=== PATIENT | female | born 1945 | race Caucasian/White ===

== ENCOUNTER 2022-03-14 12:29 | Outpatient (REF) | payer MEDICARE, SELFPAY ==
[2022-03-14 13:31] LABS: TSH With Reflex to FT4* 0.587 uIU/mL (0.270-4.200)
[2022-03-14 13:49] LABS: Vitamin B12* 662 pg/mL (243-894)
[2022-03-15 08:43] LABS: Folate, Serum >22.3 ng/mL (>=5.9)
== END 2022-03-14 12:30 | disposition home or self-care (01) ==
LOC: NPINS 12:29
PROVIDERS: PCP Family Medicine; Visit Provider Psychiatry & Neurology Neurology
DX: R41.0 Disorientation, unspecified (principal)
CPT/HCPCS: 82607; 82746; 84443

== ENCOUNTER 2022-05-20 09:58 | Outpatient (CLI) | payer MEDICARE, SELFPAY ==
[2022-05-20 12:15] LABS: Cholesterol* 143 mg/dL (90-199); HDL Cholesterol* 61 mg/dL (>=50); LDL Cholesterol Calculated 60 mg/dL (<100); Triglycerides* 108 mg/dL (40-149)
== END 2022-05-20 09:59 | disposition home or self-care (01) ==
LOC: NFLDREF 09:58
PROVIDERS: PCP Family Medicine; Visit Provider Internal Medicine
DX: I25.10 Atherosclerotic heart disease of native coronary artery without angina pectoris (principal); E78.5 Hyperlipidemia, unspecified
CPT/HCPCS: 80061

== ENCOUNTER 2022-05-25 09:45 | Outpatient (RCR) | payer MEDICARE, SELFPAY | END 2022-11-17 23:59 | disposition home or self-care (01) | PROVIDERS: PCP Family Medicine; Visit Provider Dentist General Practice | DX: R68.84 Jaw pain (principal); M79.18 Myalgia, other site; H92.09 Otalgia, unspecified ear; M26.69 Other specified disorders of temporomandibular joint; M54.2 Cervicalgia; G44.209 Tension-type headache, unspecified, not intractable; Z51.89 Encounter for other specified aftercare | CPT/HCPCS: 97110; 97140; 97162 ==

== ENCOUNTER 2022-10-28 14:54 | Outpatient (CLI) | payer OTHER, SELFPAY | END 2022-10-28 14:55 | disposition home or self-care (01) | PROVIDERS: PCP Family Medicine; Visit Provider Family Medicine | DX: E87.1 Hypo-osmolality and hyponatremia (principal); I10 Essential (primary) hypertension; R53.83 Other fatigue; E78.5 Hyperlipidemia, unspecified; E11.40 Type 2 diabetes mellitus with diabetic neuropathy, unspecified; E11.9 Type 2 diabetes mellitus without complications | CPT/HCPCS: 80048; 84443; 85025 ==

== ENCOUNTER 2023-02-03 17:33 | Outpatient (CLI) | payer OTHER, SELFPAY | END 2023-02-03 17:34 | disposition home or self-care (01) | LOC: AMB 02-05 11:08 | PROVIDERS: PCP Family Medicine; Visit Provider Family Medicine | DX: S01.512A Laceration without foreign body of oral cavity, initial encounter (principal); S02.5XXA Fracture of tooth (traumatic), initial encounter for closed fracture | CPT/HCPCS: A0425; A0427 ==

== ENCOUNTER 2023-02-03 17:54 | Emergency (ER) | payer OTHER, SELFPAY ==
[2023-02-03 18:09] VITALS: BP 205/80; PULSE 89; RESP 18; TEMP 38.2; O2SAT 98; BMI 25.1
--- NOTE | 2023-02-03 18:34 | ED.GENADULT ---
HPI - General Adult General Chief complaint: Dental/Oral/Mouth Injury/Pain Stated complaint: Tongue puncture wound Time Seen by Provider: 02/03/23 17:59 History of Present Illness HPI narrative: This 78-year-old female comes in because her partial dental plate became dislodged and a sharp edge of it punctured through the left side of her tongue. She had a hard time talking as the plate was causing pain and not releasing from its position. While awaiting in the waiting room to be seen she was able to remove the dental plate. She reports a puncture on the left side of her tongue. There is no sign of laceration. Her tetanus status is up-to-date by her report. Related Data Home Medications Medication Instructions Recorded Confirmed calcium carbonate 500 mg calcium 500 mg PO QDAY 11/23/21 10/28/22 (1,250 mg) tablet diphenhydramine HCl 50 mg capsule 50 mg PO .HS 11/23/21 10/28/22 echinacea 125 mg capsule 250 mg PO QDAY 11/23/21 10/28/22 multivitamin 1 tab PO QDAY 11/23/21 10/28/22 ascorbate calcium (vitamin C) 500 500 mg PO QDAY 03/03/22 10/28/22 mg tablet aspirin 81 mg tablet,delayed 81 mg PO QDAY 03/03/22 10/28/22 release vitamin E 200 unit capsule 200 unit PO QDAY 03/03/22 10/28/22 Previous Rx's Medication Instructions Recorded nitroglycerin 0.4 mg sublingual 0.4 mg sublingual Q5M PRN chest 05/04/22 tablet (Nitrostat) pain #20 tabs amlodipine 5 mg tablet 5 mg PO QDAY #90 tabs 12/23/22 atorvastatin 40 mg tablet 40 mg PO QDAY #90 tabs 12/23/22 clopidogrel 75 mg tablet 75 mg PO QDAY #90 tabs 12/23/22 donepezil 10 mg tablet 10 mg PO QDAY #90 tabs 12/23/22 escitalopram oxalate 20 mg tablet 20 mg PO QDAY #90 tabs 12/23/22 gabapentin 300 mg capsule 300 mg PO QHS #90 caps 12/23/22 lisinopril 40 mg tablet 40 mg PO QDAY #90 tabs 12/23/22 metoprolol succinate 50 mg 50 mg PO QDAY #90 tabs 12/23/22 tablet,extended release 24 hr Allergies Allergy/AdvReac Type Severity Reaction Status Date / Time fentanyl Allergy Unknown Verified 10/28/22 14:17 hydromorphone Allergy Unknown Verified 10/28/22 14:17 morphine Allergy Unknown Verified 10/28/22 14:17 Review of Systems Status of ROS: Reports: 10 or more systems reviewed and unremarkable except as noted in History and below Narrative: Constitutional: No fevers, no weight gain or loss. Eyes: No discharge. No vision changes. HENT: No congestion, no sore throat, no ear pain. Tongue injury as described above. Cardiovascular: No chest pain, no palpitations. Respiratory: No shortness of breath, no wheezes, no cough. Gastrointestinal: No abdominal pain, no vomiting, no diarrhea. Genitourinary: No dysuria, no hematuria. Musculoskeletal: Normal range of motion. Skin: No rashes, no pruritis. Neurological: No dizziness, weakness, sensory change, speech change. Endo/Heme/Allergies: No bruising or bleeding. No polydipsia. Pysch: no suicidality, no anxiety, no insomnia. All other systems reviewed and are negative. [facility] Medical History (Updated 02/03/23 @ 18:39 by Chris Cristobal MD) Chronic diarrhea ?K52.9 - Noninfective gastroenteritis and colitis, unspecified (ICD-10) Diabetic neuropathy ?E11.40 - Type 2 diabetes mellitus with diabetic neuropathy, unspecified (ICD-10) Situational depression ?F43.21 - Adjustment disorder with depressed mood (ICD-10) ASCVD (arteriosclerotic cardiovascular disease) ?I25.10 - Atherosclerotic heart disease of [place] coronary artery without angina pectoris (ICD-10) Type 2 diabetes mellitus ?E11.9 - Type 2 diabetes mellitus without complications (ICD-10) Odontogenic infection of jaw (08/16/20) ?M27.2 - Inflammatory conditions of jaws (ICD-10) Non-ST elevation myocardial infarction (NSTEMI) (01/11/21) ?I21.4 - Non-ST elevation (NSTEMI) myocardial infarction (ICD-10) Mild cognitive impairment with memory loss ?G31.84 - Mild cognitive impairment, so stated (ICD-10) Hyponatremia (01/11/21) ?E87.1 - Hypo-osmolality and hyponatremia (ICD-10) Hypertension ?I10 - Essential (primary) hypertension (ICD-10) Hyperlipidemia ?E78.5 - Hyperlipidemia, unspecified (ICD-10) History of malignant neoplasm of cervix ?Z85.41 - Personal history of malignant neoplasm of cervix uteri (ICD-10) Surgical History (Updated 10/27/22 @ 12:25 by Brunilda Pulliam) History of lumbar surgery ?Z98.890 - Other specified postprocedural states (ICD-10) History of hysterectomy ?Z90.710 - Acquired absence of both cervix and uterus (ICD-10) History of coronary artery stent placement (01/12/21) ?Z95.5 - Presence of coronary angioplasty implant and graft (ICD-10) Family History (Updated 11/22/21 @ 16:08 by Willian Mejia) Father Heart disease Social History (Updated 08/28/22 @ 21:43 by Stevan Lawson MD) Narrative: , 3 kids, retired RN, nonsmoker, social EtOH, 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 Smoking Status: Former smoker Little interest or pleasure in doing things: several days Feeling down, depressed, or hopeless: several days Exam Narrative: Exam Narrative: Constitutional: Well-developed, well-nourished, no acute distress. HEENT: Normocephalic, atraumatic. Oropharynx appears normal. There is a small puncture wound on the left side of the tongue with no active bleeding. Neck: Normal range of motion. Nontender. Supple. Heart: Intact distal pulses. Lungs: No chest discomfort. No wheezes, rhonchi, or rales. Abdomen: Nontender. Back: Normal range of motion. Extremities: Normal range of motion. No injury. Skin: Intact. No rash. Warm. No erythema or pallor. Neurologic: No altered sensation. No weakness. Alert and oriented. Psychiatric: No suicidality. No anxiety or depression. No insomnia. Nursing notes and vitals signs are reviewed. Const: Vital Signs, click to edit/add: Vital Signs - 24 hr 02/03/23 18:09 Temperature 100.8 F H Pulse Rate [Pulse Oximeter] 89 Respiratory Rate 18 Blood Pressure [Ri ght Upper Arm] 205/80 H Pulse Oximetry 98 Oxygen Delivery Me thod Room Air Course Vital Signs Vital signs: Initial Vital Signs Temperature 100.8 F H 02/03/23 18:09 Temperature Source Temporal Artery Scan 02/03/23 18:09 Pulse Rate 89 02/03/23 18:09 Respiratory Rate 18 02/03/23 18:09 Blood Pressure 205/80 H 02/03/23 18:09 Blood Pressure Mean 121 H 02/03/23 18:09 Pulse Oximetry 98 02/03/23 18:09 Oxygen Delivery Method Room Air 02/03/23 18:09 Vital Signs Temperature 100.8 F H 02/03/23 18:09 Pulse Rate 89 02/03/23 18:09 Respiratory Rate 18 02/03/23 18:09 Blood Pressure 205/80 H 02/03/23 18:09 Pulse Oximetry 98 02/03/23 18:09 Oxygen Delivery Method Room Air 02/03/23 18:09 Temperature 100.8 F H 02/03/23 18:09 Pulse Rate 89 02/03/23 18:09 Respiratory Rate 18 02/03/23 18:09 Blood Pressure 205/80 H 02/03/23 18:09 Pulse Oximetry 98 02/03/23 18:09 Oxygen Delivery Method Room Air 02/03/23 18:09 Medical Decision Making MDM Narrative Medical decision making narrative: This patient received a puncture in the left side of her tongue from her partial dental plate that became dislodged. The plate was still imbedded in her tongue at the time of arrival but by the time of my visit she was able to remove the plate. Her exam is reassuring. I explained that there is no indication for repair of this wound. The patient states that the dental plate is yet functional. She is okay to be discharged home. Discharge Plan Discharge Clinical Impression: Injury of tongue Patient Disposition: Home, Self-Care Condition: Improved Additional Instructions: Continue current plans. Use [id number] medicines as needed and directed. Follow up with MD return if worsening. Prescriptions: No Action aspirin 81 mg tablet,delayed release (DR/EC) 81 mg PO QDAY diphenhydramine HCl 50 mg capsule 50 mg PO .HS calcium carbonate 500 mg calcium (1,250 mg) tablet 500 mg PO QDAY echinacea 125 mg capsule 250 mg PO QDAY Rx Instructions: administer with meals multivitamin Tablet 1 tab PO QDAY ascorbate calcium (vitamin C) 500 mg tablet 500 mg PO QDAY vitamin E 200 unit capsule 200 unit PO QDAY nitroglycerin [Nitrostat] 0.4 mg tablet, sublingual 0.4 mg sublingual Q5M PRN (Reason: chest pain) Qty: 20 1RF Rx Instructions: do not exceed 3 doses per episode amlodipine 5 mg tablet 5 mg PO QDAY Qty: 90 0RF atorvastatin 40 mg tablet 40 mg PO QDAY Qty: 90 0RF clopidogrel 75 mg tablet 75 mg PO QDAY Qty: 90 0RF donepezil 10 mg tablet 10 mg PO QDAY Qty: 90 0RF escitalopram oxalate 20 mg tablet 20 mg PO QDAY Qty: 90 0RF gabapentin 300 mg capsule 300 mg PO QHS Qty: 90 0RF lisinopril 40 mg tablet 40 mg PO QDAY Qty: 90 0RF metoprolol succinate 50 mg tablet extended release 24 hr 50 mg PO QDAY Qty: 90 0RF Follow Up/Referrals: Stevan Lawson MD [Primary Care Provider] - Stand Alone [facility] Inst[facility]
== END 2023-02-03 19:22 | disposition home or self-care (01) ==
LOC: ED 18:45
PROVIDERS: Emergency Provider Emergency Medicine Emergency Medical Services; PCP Family Medicine
DX: S01.532A Puncture wound without foreign body of oral cavity, initial encounter (principal); X58.XXXA Exposure to other specified factors, initial encounter
CPT/HCPCS: 99282; 99283; 99284

== ENCOUNTER 2023-12-18 15:35 | Outpatient (CLI) | payer OTHER, SELFPAY | END 2023-12-18 15:36 | disposition home or self-care (01) | PROVIDERS: PCP Family Medicine; Visit Provider Family Medicine | DX: E78.2 Mixed hyperlipidemia (principal); I10 Essential (primary) hypertension; E11.9 Type 2 diabetes mellitus without complications; E87.1 Hypo-osmolality and hyponatremia | CPT/HCPCS: 80048; 80061; 84460 ==

== ENCOUNTER 2024-02-03 17:03 | Emergency (ER) | payer OTHER, SELFPAY ==
[2024-02-03 17:11] VITALS: BP 204/77; PULSE 85; RESP 18; TEMP 36.6; O2SAT 96; BMI 25.8
[2024-02-03 18:02] LABS: PCR FLU A Negative PCR FLU A (Negative); PCR FLU B Negative PCR FLU B (Negative); PCR RSV Negative PCR RSV (Negative); SARS PCR* Negative SARS-CoV-2 (Negative)
--- NOTE | 2024-02-03 19:27 | ED_ITS ---
HPI - Nausea/Vomiting/Diarrhea General Chief complaint: Diarrhea Stated complaint: Diarrhea Time Seen by Provider: 02/03/24 19:14 History of Present Illness HPI Narrative: This 79-year-old female comes in reporting 3 episodes of diarrhea that occurred today. She has not had much to eat. She has been taking liquids now and arrives with normal vital signs. She does report some nausea on occasion but none currently. She has not had any vomiting or fever. There is no report of blood in the toilet. Related Data Home Medications ?Medication ?Instructions ?Recorded ?Confirmed calcium carbonate 500 mg PO QDAY 11/23/21 12/18/23 diphenhydramine HCl 50 mg capsule 50 mg PO .HS 11/23/21 12/18/23 echinacea 125 mg capsule 250 mg PO QDAY 11/23/21 12/18/23 multivitamin 1 tab PO QDAY 11/23/21 12/18/23 ascorbate calcium (vitamin C) 500 500 mg PO QDAY 03/03/22 12/18/23 mg tablet aspirin 81 mg tablet,delayed 81 mg PO QDAY 03/03/22 12/18/23 release vitamin E 200 unit capsule 200 unit PO QDAY 03/03/22 12/18/23 cholecalciferol (vitamin D3) PO 04/28/23 12/18/23 Previous Rx's ?Medication ?Instructions ?Recorded Blood Glucose Meter #1 ea 03/20/23 Diabetic Test Strips #100 ea 03/20/23 chlorthalidone 25 mg tablet 25 mg PO QDAY #90 tabs 05/17/23 olanzapine 2.5 mg tablet (Zyprexa) 2.5 mg PO QHS #30 tabs 06/18/23 escitalopram oxalate 20 mg tablet 20 mg PO QDAY #90 tabs 07/28/23 gabapentin 300 mg capsule 300 mg PO QHS #90 caps 07/28/23 lisinopril 40 mg tablet 40 mg PO QDAY #90 tabs 07/28/23 metoprolol succinate 50 mg 50 mg PO QDAY #90 tabs 07/28/23 tablet,extended release 24 hr nitroglycerin 0.4 mg sublingual 0.4 mg sublingual Q5M PRN chest 08/16/23 tablet (Nitrostat) pain #20 tabs clopidogrel 75 mg tablet 75 mg PO DAILY #90 tabs 07/12/24 donepezil 10 mg tablet 10 mg PO DAILY #90 tabs 11/10/23 atorvastatin 40 mg tablet 40 mg PO QDAY #90 tabs 11/13/23 pioglitazone 15 mg tablet 15 mg PO QDAY #90 tabs 12/25/23 Allergies Allergy/AdvReac Type Severity Reaction Status Date / Time fentanyl Allergy Unknown Verified 12/18/23 14:47 hydromorphone Allergy Unknown Verified 12/18/23 14:47 morphine Allergy Unknown Verified 12/18/23 14:47 Review of Systems Status of ROS: Reports: 10 or more systems reviewed and unremarkable except as noted in History and below Narrative: Constitutional: No fevers, no weight gain or loss. Eyes: No discharge. No vision changes. HENT: No congestion, no sore throat, no ear pain. Cardiovascular: No chest pain, no palpitations. Respiratory: No shortness of breath, no wheezes, no cough. Gastrointestinal: No abdominal pain, no vomiting. Diarrhea as reported above. Genitourinary: No dysuria, no hematuria. Musculoskeletal: Normal range of motion. Skin: No rashes, no pruritis. Neurological: No dizziness, weakness, sensory change, speech change. Endo/Heme/Allergies: No bruising or bleeding. No polydipsia. Pysch: no suicidality, no anxiety, no insomnia. All other systems reviewed and are negative. [facility] Medical History (Updated 02/03/24 @ 19:30 by Chris Cristobal MD) Mixed hyperlipidemia ?E78.2 - Mixed hyperlipidemia (ICD-10) Primary hypertension ?I10 - Essential (primary) hypertension (ICD-10) Type 2 diabetes mellitus, without long-term current use of insulin ?E11.9 - Type 2 diabetes mellitus without complications (ICD-10) Chronic diarrhea ?K52.9 - Noninfective gastroenteritis and colitis, unspecified (ICD-10) Diabetic neuropathy ?E11.40 - Type 2 diabetes mellitus with diabetic neuropathy, unspecified (ICD-10) Situational depression ?F43.21 - Adjustment disorder with depressed mood (ICD-10) ASCVD (arteriosclerotic cardiovascular disease) ?I25.10 - Atherosclerotic heart disease of [place] coronary artery without a ngina pectoris (ICD-10) Odontogenic infection of jaw (08/16/20) ?M27.2 - Inflammatory conditions of jaws (ICD-10) Non-ST elevation myocardial infarction (NSTEMI) (01/11/21) ?I21.4 - Non-ST elevation (NSTEMI) myocardial infarction (ICD-10) Mild cognitive impairment with memory loss ?G31.84 - Mild cognitive impairment, so stated (ICD-10) Hyponatremia (01/11/21) ?E87.1 - Hypo-osmolality and hyponatremia (ICD-10) History of malignant neoplasm of cervix ?Z85.41 - Personal history of malignant neoplasm of cervix uteri (ICD-10) Surgical History (Updated 10/27/22 @ 12:25 by Brunilda Pulliam) History of lumbar surgery ?Z98.890 - Other specified postprocedural states (ICD-10) History of hysterectomy ?Z90.710 - Acquired absence of both cervix and uterus (ICD-10) History of coronary artery stent placement (01/12/21) ?Z95.5 - Presence of coronary angioplasty implant and graft (ICD-10) Family History (Updated 11/22/21 @ 16:08 by Willian Mejia) Father Heart disease Social History (Updated 04/28/23 @ 12:07 by Idalia Kaufman ~ RMA, RMA) Narrative: , 3 kids, retired RN, nonsmoker, social EtOH, 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 What is your current living situation?: I presently have a place to live Problems where you live: no known problems In the past 12 months, utilities in danger of being shut off: yes In past 12 months, lack of transportation kept you from medical appts, meetings, work, or getting things needed for daily living: yes In the past 12 mos, have been you worried that your food would run out before you had money to buy more?: never true In the past 12 mos, the food you bought just didn't last and you didn't have money to buy more?: never true Smoking Status: Former smoker How often does anyone, including family, friends and others, physically hurt you : never How often does anyone, including family, friends and others, insult or talk down to you: never How often does anyone, including family, friends and others, threaten you with harm: never How often does anyone, including family, friends and others, scream or curse at you: never Little interest or pleasure in doing things: not at all Feeling down, depressed, or hopeless: not at all Exam Narrative: Exam Narrative: Constitutional: Well-developed, well-nourished, no acute distress. HEENT: Normocephalic, atraumatic. Neck: Normal range of motion. Nontender. Supple. Heart: Regular. No murmurs. Normal rate. Intact distal pulses. Lungs: Clear to auscultation. No chest discomfort. No wheezes, rhonchi, or rales. Abdomen: Normal bowel sounds. Nontender. No rebound tenderness. Genitalia: Deferred. Back: No midline tenderness. Normal range of motion. Extremities: Normal range of motion. No injury. Skin: Intact. No rash. Warm. No erythema or pallor. Neurologic: No altered sensation. No weakness. Alert and oriented. Psychiatric: No suicidality. No anxiety or depression. No insomnia. Nursing notes and vitals signs are reviewed. Const: Vital Signs, click to edit/add: Vital Signs - 24 hr 02/03/24 17:11 Temperature 98 F Pulse Rate [Pulse Oximeter] 85 Respiratory Rate 18 Blood Pressure [Ri ght Upper Arm] 204/77 H Pulse Oximetry 96 Oxygen Delivery Me thod Room Air Course Vital Signs Vital signs: Initial Vital Signs Temperature 98 F 02/03/24 17:11 Temperature Source Temporal Artery Scan 02/03/24 17:11 Pulse Rate 85 02/03/24 17:11 Respiratory Rate 18 02/03/24 17:11 Blood Pressure 204/77 H 02/03/24 17:11 Blood Pressure Mean 119 H 02/03/24 17:11 Pulse Oximetry 96 02/03/24 17:11 Oxygen Delivery Method Room Air 02/03/24 17:11 Vital Signs Temperature 98 F 02/03/24 17:11 Pulse Rate 85 02/03/24 17:11 Respiratory Rate 18 02/03/24 17:11 Blood Pressure 204/77 H 02/03/24 17:11 Pulse Oximetry 96 02/03/24 17:11 Oxygen Delivery Method Room Air 02/03/24 17:11 Temperature 98 F 02/03/24 17:11 Pulse Rate 85 02/03/24 17:11 Respiratory Rate 18 02/03/24 17:11 Blood Pressure 204/77 H 02/03/24 17:11 Pulse Oximetry 96 02/03/24 17:11 Oxygen Delivery Method Room Air 02/03/24 17:11 MDM - Nausea/Vomiting/Diarrhea MDM Narrative Medical decision making narrative: This patient comes in because of 3 episodes of diarrhea. She had otherwise has no other symptoms and has normal vital signs. She did have a nasal swab done which returned negative for COVID, RSV, and influenza. She is satisfied with that result. She did receive 1 tablet of Lomotil. I advised using Imodium as needed and directed for ongoing management. Lab Data Labs: Lab Results 02/03/24 Range/Units 17:18 SARS-CoV-2 (PCR) Negative SARS-CoV-2 (Negative) Influenza Type A (PCR) Negative PCR FLU A (Negative) Influenza Type B (PCR) Negative PCR FLU B (Negative) RSV (PCR) Negative PCR RSV (Negative) Discharge Plan Discharge Clinical Impression: Diarrhea Patient Disposition: Home, Self-Care Condition: Stable Additional Instructions: Use Imodium as needed and directed for ongoing management. Take plenty of fluids as tolerated and increase diet also as tolerated. Follow up with MD return if worsening. Prescriptions: No Action cholecalciferol (vitamin D3) PO pioglitazone 15 mg tablet 15 mg PO QDAY Qty: 90 1RF aspirin 81 mg tablet,delayed release (DR/EC) 81 mg PO QDAY diphenhydramine HCl 50 mg capsule 50 mg PO .HS calcium carbonate 500 mg calcium (1,250 mg) tablet 500 mg PO QDAY echinacea 125 mg capsule 250 mg PO QDAY Rx Instructions: administer with meals multivitamin Tablet 1 tab PO QDAY ascorbate calcium (vitamin C) 500 mg tablet 500 mg PO QDAY vitamin E 200 unit capsule 200 unit PO QDAY (DME) Blood Glucose Meter [facility] [place] See Rx Instructions .ROUTE .MEDSUPPLY Qty: 1 0RF Rx Instructions: As directed ([facility] [place]) Diabetic Test Strips [facility] [place] See Rx Instructions .ROUTE .MEDSUPPLY Qty: 100 3RF Rx Instructions: Check daily chlorthalidone 25 mg tablet 25 mg PO QDAY Qty: 90 1RF olanzapine [Zyprexa] 2.5 mg tablet 2.5 mg PO QHS Qty: 30 5RF escitalopram oxalate 20 mg tablet 20 mg PO QDAY Qty: 90 1RF gabapentin 300 mg capsule 300 mg PO QHS Qty: 90 1RF metoprolol succinate 50 mg tablet extended release 24 hr 50 mg PO QDAY Qty: 90 1RF lisinopril 40 mg tablet 40 mg PO QDAY Qty: 90 1RF nitroglycerin [Nitrostat] 0.4 mg tablet, sublingual 0.4 mg sublingual Q5M PRN (Reason: chest pain) Qty: 20 1RF Rx Instructions: do not exceed 3 doses per episode clopidogrel 75 mg tablet 75 mg PO DAILY Qty: 90 0RF donepezil 10 mg tablet 10 mg PO DAILY Qty: 90 0RF atorvastatin 40 mg tablet 40 mg PO QDAY Qty: 90 0RF Follow Up/Referrals: Stevan Lawson MD [Primary Care Provider] - Stand Alone Forms: [facility] Info Instructions
[2024-02-03] MEDS: DIPHENOXYLATE-ATROP 2.5-0.025 TABLET 1 TAB PO (19:39)
== END 2024-02-03 19:41 | disposition home or self-care (01) ==
LOC: ED 19:30
PROVIDERS: Emergency Provider Emergency Medicine Emergency Medical Services; PCP Family Medicine
DX: R19.7 Diarrhea, unspecified (principal)
CPT/HCPCS: 87631; 99283; 99284; A9270

== ENCOUNTER 2024-02-12 15:45 | Outpatient (RCR) | payer OTHER, SELFPAY | END 2024-02-29 15:43 | disposition home or self-care (01) | PROVIDERS: PCP Family Medicine; Visit Provider Family Medicine | DX: R29.6 Repeated falls (principal); R26.81 Unsteadiness on feet; Z51.89 Encounter for other specified aftercare | CPT/HCPCS: 97110; 97112; 97161 ==

== ENCOUNTER 2024-08-20 15:21 | Outpatient (CLI) | payer OTHER, SELFPAY | END 2024-08-20 15:22 | disposition home or self-care (01) | LOC: FBOREF 15:22 | PROVIDERS: PCP Family Medicine; Visit Provider Family Medicine | DX: E78.2 Mixed hyperlipidemia (principal); I10 Essential (primary) hypertension; E11.9 Type 2 diabetes mellitus without complications | CPT/HCPCS: 80048; 80061; 85025 ==

== ENCOUNTER 2024-12-04 14:10 | Outpatient (CLI) | payer OTHER, SELFPAY | END 2024-12-04 14:11 | disposition home or self-care (01) | LOC: AMB 12-06 12:13 | PROVIDERS: Visit Provider Family Medicine | DX: R55 Syncope and collapse (principal); R19.7 Diarrhea, unspecified; R53.1 Weakness | CPT/HCPCS: A0998 ==

== ENCOUNTER 2024-12-04 14:58 | Emergency (ER) | payer OTHER, SELFPAY ==
[2024-12-04 15:02] VITALS: BP 185/80; PULSE 61; RESP 16; TEMP 36.6; O2SAT 99; BMI 24.3
--- OUTSIDE RECORDS SUMMARY | 2024-12-04 15:04 | XMS_ITS | Clinical Summary ---
Author Organization [employer] [facility] Address [address] [place] [id number] Care Team Providers Care Photocopying Equipment Repairer Name Role Phone Stevan Lawson MD Primary Care Provider + Allergies Active Allergy Reactions Criticality Noted Date Comments Cephalexin Hives 06/17/2014 IV cephalexin Hydromorphone Nausea And Vomiting 06/23/2007 Fentanyl *Unknown 12/13/2013 Metformin Diarrhea 04/19/2016 Morphine Nausea And Vomiting 06/23/2007 Medications OMEGA-3 FATTY ACIDS 1,000 MG CAP Take 1,000 mg by mouth 2 times daily. Active VITAMIN C 500 MG TAB Take 500 mg by mouth 2 times daily. Active MULTIVITAMIN TAB Take 1 Tablet by mouth once daily. Active gabapentin (NEURONTIN) 300 mg capsule Take 300 mg by mouth at bedtime. 12/03/19 21 Active vitamin e 400 unit capsule Take 400 units by mouth once daily. Active coenzyme q10 30 mg capsule Take 30 mg by mouth once daily. Active atorvastatin (LIPITOR) 40 mg tablet Take 40 mg by mouth at bedtime. 09/22/19 21 Active cholecalciferol (VITAMIN D3) 2,000 unit capsule Take 2,000 units by mouth once daily. Active calcium polycarbophiL (FIBERCON) 625 mg tablet Take 625 mg by mouth 2 times daily. Active calcium carbonate (OS-GEO 500) 500 mg calcium (1,250 mg) tablet Take 500 mg by mouth once daily with a meal. Active amLODIPine (Norvasc) 5 mg tablet Take 5 mg by mouth once daily. Active lisinopriL (PRINIVIL; ZESTRIL) 40 mg tablet Take 40 mg by mouth once daily. Active aspirin chewable 81 mg chewable tabletIndications :NSTEMI (non-ST elevated myocardial infarction) (HC) Take 1 Tablet (81 mg) by mouth or nasogastric tube once daily. 90 Tablet 3 1 10:13 AM CDT 01/14/20 21 Active clopidogreL (PLAVIX) 75 mg tabletIndications :NSTEMI (non-ST elevated myocardial infarction) (HC) Take 1 Tablet (75 mg) by mouth once daily. Take uninterrupted for one year 90 Tablet 3 1 10:13 AM CDT 01/14/20 21 Active nitroglycerin (NITROSTAT) 0.4 mg sublingual tabletIndications :NSTEMI (non-ST elevated myocardial infarction) (HC) Place 1 Tablet (0.4 mg) under the tongue every 5 minutes if needed. 25 Tablet 2 1 10:13 AM CDT 01/14/20 21 Active Active Problems Problem Noted Date Diagnosed Date History of hysterectomy 01/11/2021 Cervical cancer 01/11/2021 Overview (01/11/2021): Created by Conversion Replacement Utility updated for latest IMO load History of lumbar surgery 01/11/2021 Hyperlipidemia 01/11/2021 Hypertension 01/11/2021 Overview (01/11/2021): Created by Conversion Replacement Utility updated for latest IMO load Last Assessment & Plan: Well controlled and labs are good. No change today. On an ACEI Hyponatremia 01/11/2021 NSTEMI (non-ST elevated myocardial infarction) 0 01/11/2021 Type 2 diabetes mellitus wit h diabetic neuropathy, without long-term current use of insulin 11/28/2017 Urine retention 10/13/2015 Overview (01/11/2021): Last Assessment & Plan: She has not had as much an issue recently for some reason. Interesting. Family History Medical History Relation Name Comments Diabetes Father Cancer Mother cervical Relation Name Status Comments Father Mother Social History Tobacco Use Types Packs/Day Years Used Date Smoking Tobacco: Former Cigarettes Smokeless Tobacco: Former Quit: 01/23/1971 Tobacco Cessation:Counseling Given: Yes Comments:quit in her 20's Alcohol Use Standard Drinks/Week Comments Yes 0.8 (1 standard drink = 0.6 oz p ure alcohol) PHQ-2 Answer Date Recorded PHQ-2 TOTAL SCORE 2 04/21/2021 Social Connections Answer Date Recorded Frequency of Communication with Friends and Fami ly Not on file 04/21/2021 Financial Resource Strain Answer Date R ecorded Difficulty of Paying Living Expenses Not on file 04/21/2021 Difficulty of Paying Living Expenses Not on file 04/21/2021 Comments No Sex and Gender Information Value Date Recorded Sex Assigned at Not on file Legal Sex Female 6:40 AM [employer] Gender Identity Not on file Sexual Orientation Not on file Obstetrics History Last Filed Vital Signs Vital Sign Reading Time Taken Comments Blood Pressure 146/66 11/09/2022 2:49 PM CDT Pulse 54 11/09/2022 2:49 PM CDT Temperature 36.6 C (97.9 F) 01/13/2021 7:48 AM CDT Respiratory Rate 16 01/13/2021 7:48 AM CDT Oxygen Saturation 100% 11/09/2022 2:49 PM CDT Inhaled Oxygen Concentration - - Weight 75.3 kg (166 lb) 2021 4:00 PM CDT Height 170.2 cm (5' 7) 2021 4:00 PM CDT Body Mass Index 26 2021 4:00 PM CDT Plan of Treatment Health Maintenance Due Date Last Done Comments Tetanus booster 1954 BMI (ht and wt on same day) for age 18+ 1961 Pneumococcal series for age 50+ (1 of 2 - PCV) 1962 Zoster (shingles) series for age 50+ (1 of 2) 1993 DEXA/DXA scan for age 65+ 01/27/2008 Medicare Wellness for age 65+ 01/27/2008 RSV vaccine for adults or (1 - 1-dose 75+ series) 2018 Depression screening for age 12+ 01/29/2022 01/29/2021, 2021 COVID-19 vaccine series (2023- season) 2023 02/07/2022, 11/23/2021, 02/26/2021, Additional history exists Influenza Vaccine (#1) 2024 Hepatitis B series for 19+ Aged Out N o longer eligible based on patient's age to complete this topic Insurance [employer] PPO MR Member Subscriber Plan / Payer (Ef fective 2022-Present) Name:Summer Moran Relation to Subscriber:Self Name:Summer Moran Payer ID:[id number] (NAIC) Type:Not on file Address: [place] [id number] [employer] PPO MR Advance Directives * Full Code (Latest Code Status on File) Date Activated Date Inactivated Comments 01/11/2021 5:40 PM 01/13/2021 2:50 PM No heroic me asures. Limited attempts at resuscitation. (Former NICKER) Question Answer Comments Code Status Discussion: Discussed Care Teams Photocopying Equipment Repairer Relationship Specialty Start Date End Date Stevan Lawson MD [address] [place] [address] PCP - General Family Practice 01/29/21
--- OUTSIDE RECORDS SUMMARY | 2024-12-04 15:04 | XMS_ITS | Patient Health Record ---
Author Organization [employer] Address [address] [place] [address] Support Name Relationship Address Phone Dean Summer Guarantor Unknown [phone] Reason For Referral No Information Medications Medication SIG (Take, Route, Frequency, Duration) Notes Start Date End Date Status metFORMIN HCl ER (OSM) 1000 MG Oral Active Lisinopril 20 MG Oral Act leonel Multivitamin Adult Oral A ctive glipiZIDE 5 MG Oral Activ e Atorvastatin Calcium 80 MG Oral Active Lancets miscellaneous Active Magnesium 200 MG Oral Act leonel Naproxen Sodium 220 MG Oral Active traMADol HCl 50 MG Oral A ctive Aspir-81 81 MG Oral *please review f or potential update for e-prescription and drug interaction check* Active Co Q-10 oral *please review f or potential update for e-prescription and drug interaction check* Active blood sugar diagnostic, disc miscellaneous *please review for potential update for e-prescription and drug interaction check* Active Vitamin C (Calcium Ascorbate) Oral Active Plan Of Treatment No Information Insurance Providers Payer Name Payer Address Payer Phone Subscriber Number Group Number Insured Name Patient Relationship to Insured Coverage Start Date Coverage End Date [employer] Medicare Advantage [address] ANGELITO Roque [id number] Summer Agrawal Self - patient is the insured Medical (General) History Surgical History Surgery Date(Month/Year) Back fusion; 2015-03-05 Hysterectomy, Date of Procedure: 1970; 2 Knee surgery: both; 2015-03-05 ROTATOR CUFF: shoulder; 2015-03-05
--- NOTE | 2024-12-04 15:18 | ED.GENADULT ---
HPI - General Adult General Time Seen by Provider: 15:18 Date Seen: 12/04/24 Chief complaint: Syncope/Fainted Stated complaint: passed out, shaking, lost bowels, trouble walking Time Seen by Provider: 12/04/24 15:17 Source: patient and RN notes reviewed Mode of arrival: ambulatory Limitations: no limitations History of Present Illness HPI narrative: This 79-year-old female is brought in by her daughter after a witnessed event. 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 Suddenly slumped over, daughter noted some mild rhythmic shaking of her arms. She was not arousable but still seemed to be breathing. She did not follow out of her chair. She seems to have no recollection of this happening. Her daughter notes that she was confused for about 10 minutes afterwards, had difficulty walking, could not make it to the bathroom and did have fecal incontinence. Patient is back to baseline now. EMS was called but signed on scene. She is diabetic, does not check her sugars, was checked here on arrival in it is 147. She states she has some heart history, does not remember what happened, it was back when she was working, does not really remember any of the details. Her daughter had been with her since 03/30 this morning and she was completely fine before and now seems completely fine. She did not have any full rigidity of her body but her arms had a little rhythmic shaking or contraction. No neurologic symptoms now, no chest pain, shortness of breath. Her chart documents NSTEMI 2020. She is also noted to have mild cognitive impairment with memory loss, type 2 diabetes, hyperlipidemia, hypertension. Related Data Home Medications ?Medication ?Instructions ?Recorded ?Confirmed calcium carbonate 500 mg PO QDAY 11/23/21 12/04/24 echinacea 125 mg capsule 250 mg PO QDAY 11/23/21 08/20/24 multivitamin 1 tab PO QDAY 11/23/21 12/04/24 ascorbate calcium (vitamin C) 500 500 mg PO QDAY 03/03/22 12/04/24 mg tablet vitamin E 200 unit capsule 200 unit PO QDAY 03/03/22 12/04/24 cholecalciferol (vitamin D3) PO 04/28/23 08/20/24 Previous Rx's ?Medication ?Instructions ?Recorded gabapentin 300 mg capsule 300 mg PO QHS #90 caps 06/04/24 lisinopril 40 mg tablet 40 mg PO QDAY #90 tabs 08/01/24 aspirin 81 mg tablet,delayed 81 mg PO QAM #1 tab 08/20/24 release atorvastatin 40 mg tablet 40 mg PO QHS #90 tabs 08/20/24 chlorthalidone 25 mg tablet 25 mg PO QAM #90 tabs 08/20/24 clopidogrel 75 mg tablet 75 mg PO QAM #90 tabs 08/20/24 donepezil 10 mg tablet 10 mg PO QHS #90 tabs 08/20/24 escitalopram oxalate 20 mg tablet 20 mg PO QAM #90 tabs 08/20/24 metoprolol succinate 100 mg 100 mg PO QAM #90 tabs 08/20/24 tablet,extended release 24 hr olanzapine 2.5 mg tablet (Zyprexa) 2.5 mg PO QHS #90 tabs 08/20/24 pioglitazone 15 mg tablet 15 mg PO QAM #90 tabs 08/20/24 Allergies Allergy/AdvReac Type Severity Reaction Status Date / Time fentanyl Allergy Unknown Verified 12/04/24 15:09 hydromorphone Allergy Unknown Verified 12/04/24 15:09 morphine Allergy Unknown Verified 12/04/24 15:09 Review of Systems Status of ROS: Reports: 6 or more systems reviewed and unremarkable except as noted in History and below [facility] Medical History Mixed hyperlipidemia ?E78.2 - Mixed hyperlipidemia (ICD-10) Primary hypertension ?I10 - Essential (primary) hypertension (ICD-10) Type 2 diabetes mellitus, without long-term current use of insulin ?E11.9 - Type 2 diabetes mellitus without complications (ICD-10) Chronic diarrhea ?K52.9 - Noninfective gastroenteritis and colitis, unspecified (ICD-10) Diabetic neuropathy ?E11.40 - Type 2 diabetes mellitus with diabetic neuropathy, unspecified (ICD-10) Situational depression ?F43.21 - Adjustment disorder with depressed mood (ICD-10) ASCVD (arteriosclerotic cardiovascular disease) ?I25.10 - Atherosclerotic heart disease of [place] coronary artery without angina pectoris (ICD-10) Odontogenic infection of jaw (08/16/20) ?M27.2 - Inflammatory conditions of jaws (ICD-10) Non-ST elevation myocardial infarction (NSTEMI) (01/11/21) ?I21.4 - Non-ST elevation (NSTEMI) myocardial infarction (ICD-10) Mild cognitive impairment with memory loss ?G31.84 - Mild cognitive impairment, so stated (ICD-10) Hyponatremia (01/11/21) ?E87.1 - Hypo-osmolality and hyponatremia (ICD-10) History of malignant neoplasm of cervix ?Z85.41 - Personal history of malignant neoplasm of cervix uteri (ICD-10) Surgical History History of lumbar surgery ?Z98.890 - Other specified postprocedural states (ICD-10) History of hysterectomy ?Z90.710 - Acquired absence of both cervix and uterus (ICD-10) History of coronary artery stent placement (01/12/21) ?Z95.5 - Presence of coronary angioplasty implant and graft (ICD-10) Family History Father Heart disease Social History Narrative: , 3 kids, retired RN, nonsmoker, social EtOH, 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 What is your current living situation?: I presently have a place to live Problems where you live: no known problems In the past 12 months, utilities in danger of being shut off: no In past 12 months, lack of transportation kept you from medical appts, meetings, work, or getting things needed for daily living: no In the past 12 mos, have been you worried that your food would run out before you had money to buy more?: never true In the past 12 mos, the food you bought just didn't last and you didn't have money to buy more?: never true Smoking Status: Former smoker How often does anyone, including family, friends and others, physically hurt you: never How often does anyone, including family, friends and others, insult or talk down to you: never How often does anyone, including family, friends and others, threaten you with harm: never How often does anyone, including family, friends and others, scream or curse at you: never Exam Const: Vital Signs, click to edit/add: Vital Signs - 24 hr 12/04/24 15:02 Temperature 98 F Pulse Rate [Pulse Oximeter] 61 Respiratory Rate 16 Blood Pressure [Ri ght Upper Arm] 185/80 H Pulse Oximetry 99 Oxygen Delivery Me thod Room Air 79-year-old female is alert, interactive, no apparent distress. Sitting up in the bed in exam room 8. Pupils equal round reactive, sclera clear, symmetrical facial function, speech is normal. Neck is supple, no adenopathy or masses. Lungs are clear, good air entry, wheeze or crackles. CV regular rate and rhythm, no significant murmur, normal S1-S2. Abdomen is soft, nontender, nondistended. Patient was ambulatory into the ED of her own accord. Neuro is grossly normal in upper and lower extremities, no tremors. Documenting provider has reviewed patient's vital signs: yes Course Course ED Course: This patient had an event, we discussed cardiogenic in neurologic causes. They are some features that do concern me for potential neurogenic cause like seizure. This particular situation may be difficult to pinpoint definitively. Will get a head CT, have her on cardiac monitoring, pulse oximetry. We will get an EKG. With her vitals being back to baseline and no residual symptoms, very doubtful that this is suggestive of anything like a pulmonary embolus. Will do full complement of labs, with the EKG and troponin will look at cardiogenic causes. She will be on monitoring that will help us look for arrhythmia. Reevaluation(s) Time of Reevaluation #1: 17:26 Reevaluation #1: Did review with patient and her daughter that her head CT is showing no acute changes, there are some age-related degenerative changes. Her labs are reassuring at this point, initial troponin is normal. Have ordered a follow-up troponin, this is a little over 3 hours after the event. She states this happened around 2:00 p.m.. Her lactate did come back normal, and we did see patient about 1 hour after the event happened. I would think if there was seizure with arm movement that lactate may have been elevated. I will run this by Neurology. We have not seen any evidence of cardiac arrhythmia here. She is not on the monitor right now, did talk to nursing staff. They did just brought a blanket in not that long ago in she was. They will double check the leads and will keep her on the comb setter here. She had been on it prior to that throughout her stay here. It is unlikely that this is ischemic disease but will do a follow-up troponin, we are going to do a point of care here in the ER. She was not hypoglycemic on arrival here and doubt that if she had hypoglycemia causing syncope that she would have recovered without intervention. Consultations Consultation #1: Spoke with on-call neurologist Dr. Chinchilla. She does recommend doing the vascular imaging with CT angio. We will get this done. Did review with her my plan was to send patient out on Zio patch. Will also have her follow up outpatient neurology in the epilepsy Clinic, have her screen for seizures with EEG. I will right the phone number on her discharge. All of this presuming that there is nothing on the CT angio of her head neck that we need to intervene on and no evidence of arrhythmia. They were updated on this plan. Time: 17:29 Vital Signs Vital signs: Initial Vital Signs Temperature 98 F 12/04/24 15:02 Temperature Source Temporal Artery Scan 12/04/24 15:02 Pulse Rate 61 12/04/24 15:02 Respiratory Rate 16 12/04/24 15:02 Blood Pressure 185/80 H 12/04/24 15:02 Blood Pressure Mean 115 H 12/04/24 15:02 Blood Pressure Position Sitting 12/04/24 15:02 Pulse Oximetry 99 12/04/24 15:02 Oxygen Delivery Method Room Air 12/04/24 15:02 Vital Signs Temperature 98 F 12/04/24 15:02 Pulse Rate 61 12/04/24 15:02 Respiratory Rate 16 12/04/24 15:02 Blood Pressure 185/80 H 12/04/24 15:02 Pulse Oximetry 99 12/04/24 15:02 Oxygen Delivery Method Room Air 12/04/24 15:02 Temperature 98 F 12/04/24 15:02 Pulse Rate 61 12/04/24 15:02 Respiratory Rate 16 12/04/24 15:02 Blood Pressure 185/80 H 12/04/24 15:02 Pulse Oximetry 99 12/04/24 15:02 Oxygen Delivery Method Room Air 12/04/24 15:02 Medical Decision Making Lab Data Lab results reviewed: Yes I reviewed the patient's lab results Labs: Lab Results 12/04/24 12/04/24 12/04/24 Range/Units 15:33 15:40 17:21 WBC 11.51 H (4.50-11.00) K/uL RBC 3.91 L (4.00-5.20) m/uL Hgb 11.4 L (12.0-16.0) gm/dL Hct 34.8 (33.0-51.0) % MCV 89 (80-100) fL MCH 29 (26-34) pg MCHC 33 (32-36) gm/dL RDW Coeff of Harini 13.7 (11.5-15.5) % Plt Count 274 (140-440) K/uL Neut % (Auto) 86.7 H (42.0-72.0) % Lymph % (Auto) 7.4 L (20-44) % Radford % (Auto) 5.1 (0.0-11.0) % Eos % (Auto) 0.4 (0.0-7.0) % Baso % (Auto) 0.2 (0.0-3.0) % Neut # (Auto) 10.00 H (1.7-7.0) K/uL Lymph # (Auto) 0.90 (0.90-2.90) K/uL Radford # (Auto) 0.60 (0.00-0.90) K/UL Eos # (Auto) 0.00 (0.00-0.50) K/uL Baso # (Auto) 0.00 (0.00-0.30) K/uL Abs Immat Gran (auto) 0.00 (0.00-0.30) K/uL Imm/Tot Granulo (auto) 0.2 % VBG pH 7.430 (7.32-7.43) VBG pCO2 39 L (40-50) mmHG VBG pO2 31.6 (25-47) mmHG VBG HCO3 26 (21-28) mmol/L Sodium 136 (135-149) mmol/L Potassium 4.1 (3.6-5.1) mmol/L Chloride 104 (96-114) mmol/L Carbon Dioxide 25 (20-32) mmol/L Anion Gap 7 (7-15) mEq/L BUN 24 (7-30) mg/dL Creatinine 1.1 (0.5-1.5) mg/dL Estimated Creat Clear 39.01 Estimated GFR 50 ml/min Glucose 132 H (60-115) mg/dL Lactate 1.4 (0.5-1.9) mmol/L Calcium 9.8 (8.4-10.6) mg/dL Total Bilirubin 1.1 (0.1-1.5) mg/dL AST 27 (12-35) U/L ALT 19 (4-35) U/L Alkaline Phosphatase 53 (40-150) U/L Troponin I < 0.01 (0.01-0.04) ng/mL NT-Pro-B Natriuret Pep 284 (See Note) pg/mL Total Protein 6.6 (6.0-8.3) g/dL Albumin 3.8 (3.3-5.0) g/dL Ethyl Alcohol < 0.01 (0.01-0.03) % POC Glucose 147 H (60-115) mg/dl POC Troponin I 0.01 (0.01-0.04) ng/ml Imaging Data CT scan - head: Attestation: I have reviewed the pertinent imaging results. Radiologist's impression: Patient: JHONATAN WHITTINGTON Facility:?[facility] Patient ID:?[id number] Site Patient ID:?[id number] Site :?1945 Study:?CT-Head W/O-12/04/2024 4:44:43 PM Ordering Physician:José Miguel Vicente Final Report: INDICATION: Altered consciousness. TECHNIQUE: Noncontrast CT of the head with multiplanar reconstruction utilizing bone and soft tissue algorithms. COMPARISON: CT head dated 05/02/2020. FINDINGS: No acute intracranial hemorrhage. The crenshaw-white matter interface is preserved. Slight progression mild diffuse parenchymal volume loss. The ventricles are proportional to the sulci. No abnormal extra-axial fluid collection is identified. Intact skull base and calvarium. Bilateral pseudophakia. The imaged paranasal sinuses and mastoid air cells are clear. IMPRESSION: 1. No acute intracranial abnormality. 2. Since 05/02/2020, slight progression of mild diffuse parenchymal volume loss. Please note that all CT scans at this facility use dose modulation, iterative reconstruction, and/or weight-based dosing when appropriate to reduce radiation dose to as low as reasonably achievable. Dictated by Bryant Alvarez MD @ 12/04/2024 4:58:40 PM (Electronic Signature) CT- Other: Attestation: I have reviewed the pertinent imaging results. Radiologist's impression: Patient: JHONATAN WHITTINGTON Facility:?[facility] Patient ID:?[id number] Site Patient ID:?[id number]. Site :?1945 Study:?CT-Head Angio W/ 95CC [id number]/6/2025 5:57:52 PM Ordering Physician:?Becka Vicente Preliminary Report: Unremarkable CTA of the head. Read by:?Bryant Alvarez MD @12/04/2024 6:23:37 PM Patient: JHONATAN WHITTINGTON Facility:?[facility] Patient ID:?[id number] Site Patient ID:?[id number]. Site :?1945 Study:?CT-Neck Angio Angio W/ 95CC [id number]/6/2025 5:57:55 PM Ordering Physician:?Becka Vicente Preliminary Report: No arterial dissection. Atherosclerotic calcification at the carotid bifurcations with <50% proximal ICA stenosis. Read by:?Bryant Alvarez MD @12/04/2024 6:26:43 PM ECG Data Attestation: I personally reviewed and interpreted this ECG as follows: (Sinus rhythm 62 beats per minute. No evidence of any ischemia or infarct, incomplete right bundle branch block.) Prior ECG tracings: not available for review Discharge Plan Discharge Clinical Impression: Syncope Patient Disposition: Home, Self-Care Condition: Stable Instructions: Syncope (ED) Additional Instructions: Complete the comb setter and bring back per Radiology directions. Need to contact the [facility] to follow-up on screening for seizures. Phone number for that clinic is [phone]. If you have any further episodes in the interim, it is recommended that you return to the ER for further evaluation. There is no evidence of a heart attack tonight, no evidence of a stroke, no arrhythmia found while you were monitored here. Activity Level: Activity as Tolerated Prescriptions: No Action cholecalciferol (vitamin D3) PO donepezil 10 mg tablet 10 mg PO QHS Qty: 90 1RF clopidogrel 75 mg tablet 75 mg PO QAM Qty: 90 1RF atorvastatin 40 mg tablet 40 mg PO QHS Qty: 90 1RF aspirin 81 mg tablet,delayed release (DR/EC) 81 mg PO QAM Qty: 1 0RF chlorthalidone 25 mg tablet 25 mg PO QAM Qty: 90 1RF escitalopram oxalate 20 mg tablet 20 mg PO QAM Qty: 90 1RF olanzapine [Zyprexa] 2.5 mg tablet 2.5 mg PO QHS Qty: 90 1RF pioglitazone 15 mg tablet 15 mg PO QAM Qty: 90 1RF metoprolol succinate 100 mg tablet extended release 24 hr 100 mg PO QAM Qty: 90 1RF calcium carbonate 500 mg calcium (1,250 mg) tablet 500 mg PO QDAY echinacea 125 mg capsule 250 mg PO QDAY Rx Instructions: administer with meals multivitamin Tablet 1 tab PO QDAY ascorbate calcium (vitamin C) 500 mg tablet 500 mg PO QDAY vitamin E 200 unit capsule 200 unit PO QDAY gabapentin 300 mg capsule 300 mg PO QHS Qty: 90 0RF lisinopril 40 mg tablet 40 mg PO QDAY Qty: 90 1RF Follow Up/Referrals: Stevan Lawson MD [Primary Care Provider, Family Practice] Stand Alone Forms: MyHealth Info Instructions Procedures ABG Interpretation ABG Results: 12/04/24 15:40 VBG pH 7.430 VBG pCO2 39 L VBG pO2 31.6 VBG HCO3 26
--- NOTE | 2024-12-04 15:23 | CRLHL7_ITS ---
For Patients: As a result of the Century Cures Act, medical imaging exams and procedure reports are released immediately into your electronic medical record. You may view this report before your referring provider. If you have questions, please contact your health care provider. INDICATION: Altered consciousness. TECHNIQUE: Noncontrast CT of the head with multiplanar reconstruction utilizing bone and soft tissue algorithms. COMPARISON: CT head dated 05/02/2020. FINDINGS: No acute intracranial hemorrhage. The crenshaw-white matter interface is preserved. Slight progression mild diffuse parenchymal volume loss. The ventricles are proportional to the sulci. No abnormal extra-axial fluid collection is identified. Intact skull base and calvarium. Bilateral pseudophakia. The imaged paranasal sinuses and mastoid air cells are clear. IMPRESSION: 1. No acute intracranial abnormality. 2. Since 05/02/2020, slight progression of mild diffuse parenchymal volume loss. Please note that all CT scans at this facility use dose modulation, iterative reconstruction, and/or weight-based dosing when appropriate to reduce radiation dose to as low as reasonably achievable. Dictated by Bryant Alvarez MD @ 12/04/2024 4:58:40 PM (Electronically Signed)
[2024-12-04 15:34] LABS: Glucose, Point-of-Care* 147 mg/dl (60-115)
[2024-12-04 15:58] LABS: HCO3 VBG 26 mmol/L (21-28); Lactate* 1.4 mmol/L (0.5-1.9); PCO2 VBG 39 mmHG (40-50); PO2 VBG 31.6 mmHG (25-47); pH VBG 7.430 (7.32-7.43)
[2024-12-04 16:05] LABS: Hematocrit 34.8 % (33.0-51.0); Hemoglobin* 11.4 gm/dL (12.0-16.0); Immature Granulocytes Pct Auto 0.2 %; Mean Corpuscular HGB Conc 33 gm/dL (32-36); Mean Corpuscular Hemoglobin 29 pg (26-34); Mean Corpuscular Volume 89 fL (80-100); RDW Coefficient of Variation % 13.7 % (11.5-15.5); Red Blood Count 3.91 m/uL (4.00-5.20); White Blood Count* 11.51 K/uL (4.50-11.00)
[2024-12-04 16:06] LABS: Immature Granulocytes Abs Auto 0.00 K/uL (0.00-0.30); Lymphocytes Absolute Auto 0.90 K/uL (0.90-2.90); Slide Review Reflex No
[2024-12-04 16:17] LABS: Albumin* 3.8 g/dL (3.3-5.0); Chloride* 104 mmol/L (96-114)
[2024-12-04 16:18] LABS: Potassium* 4.1 mmol/L (3.6-5.1); Sodium* 136 mmol/L (135-149)
[2024-12-04 16:20] LABS: Alanine Aminotransferase* 19 U/L (4-35); Anion Gap 7 mEq/L (7-15); Aspartate Amino Transferase* 27 U/L (12-35); Blood Urea Nitrogen* 24 mg/dL (7-30); Carbon Dioxide* 25 mmol/L (20-32); Creatinine* 1.1 mg/dL (0.5-1.5); Est. Creatinine Clearance* 39.01; Estimated Glomerular Filt Rate 50 ml/min
[2024-12-04 16:21] LABS: Alkaline Phosphatase* 53 U/L (40-150); Bilirubin Total* 1.1 mg/dL (0.1-1.5); Calcium* 9.8 mg/dL (8.4-10.6); Glucose* 132 mg/dL (60-115); Total Protein* 6.6 g/dL (6.0-8.3)
[2024-12-04 16:23] LABS: Ethanol* < 0.01 % (0.01-0.03)
[2024-12-04 16:33] LABS: NT Pro B Type NatriureticPept* 284 pg/mL (See Note)
--- NOTE | 2024-12-04 17:35 | CRLHL7_ITS ---
For Patients: As a result of the Century Cures Act, medical imaging exams and procedure reports are released immediately into your electronic medical record. You may view this report before your referring provider. If you have questions, please contact your health care provider. DATE: 12/04/2024 CLINICAL HISTORY: Patient with syncope TECHNIQUE: Standard helical CT image acquisition of the neck up to the skull base after bolus intravenous contrast enhancement. 2D and 3D MIP images for post-processing were performed and interpreted on an independent workstation and 3D images were permanently archived. COMPARISON: CT same day. FINDINGS: The origins of the great vessels from the aortic arch are patent. The origin of the right vertebral artery is patent. The origin of the left vertebral artery is patent. The common carotid arteries are patent. There is a mild (50%) stenosis at the origin of the right internal carotid artery by NASCET criteria. This is caused by calcified plaque with a 2mm residual lumen. There is a mild (50%) stenosis at the origin of the left internal carotid artery by NASCET criteria. This is caused by calcified plaque with a 2mm residual lumen. The rest of the cervical segments of the internal carotid arteries are patent up to the skull base. The right vertebral artery is dominant. The cervical segments of the vertebral arteries are patent up to the skull base. The visualized lung apices are unremarkable. The thyroid gland is unremarkable. The soft tissues of the neck are unremarkable. There are degenerative changes in the cervical spine. IMPRESSION: 1. 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 This is caused by calcified plaque with a 2mm residual lumen. 2. Mild (50%) stenosis at the origin of the left internal carotid artery by NASCET criteria. This is caused by calcified plaque with a 2mm residual lumen. Please note that all CT scans at this facility use dose modulation, iterative reconstruction, and/or weight-based dosing when appropriate to reduce radiation dose to as low as reasonably achievable. Dictated by Ivon Frausto MD @ 12/05/2024 7:30:46 AM (Electronically Signed)
--- NOTE | 2024-12-04 17:35 | CRLHL7_ITS ---
For Patients: As a result of the Century Cures Act, medical imaging exams and procedure reports are released immediately into your electronic medical record. You may view this report before your referring provider. If you have questions, please contact your health care provider. DATE: 12/04/2024 CLINICAL HISTORY: Patient with focal neurological deficits. TECHNIQUE: Standard helical CT image acquisition through the intracranial circulation following intravenous administration of contrast material with bolus tracking. 2D and 3D MIP images for post-processing were performed and interpreted on an independent workstation and 3D images were permanently archived. COMPARISON: CT same day. FINDINGS: There is no cerebral aneurysm or large vessel occlusion. There are infundibula at the origins of the posterior communicating arteries bilaterally. The right internal carotid artery is normal. The right middle cerebral artery and its branches are normal. The right anterior cerebral artery and its branches are normal. The left internal carotid artery is normal. The left middle cerebral artery and its branches are normal. The left anterior cerebral artery and its branches are normal. The anterior communicating artery is well visualized and appears normal. The right vertebral artery and PICA are normal. The left vertebral artery and PICA are normal. The right vertebral artery is dominant. The basilar artery is patent and appears normal. The right posterior cerebral artery is normal. The left posterior cerebral artery is normal. The visualized venous structures are patent. IMPRESSION: Patent proximal intracranial vasculature without intracranial aneurysms. Please note that all CT scans at this facility use dose modulation, iterative reconstruction, and/or weight-based dosing when appropriate to reduce radiation dose to as low as reasonably achievable. Dictated by Ivon Frausto MD @ 12/05/2024 7:33:38 AM (Electronically Signed)
[2024-12-04 18:29] LABS: Troponin, Point-of-Care* 0.01 ng/ml (0.01-0.04)
== END 2024-12-04 19:02 | disposition home or self-care (01) ==
PROVIDERS: Emergency Provider Family Medicine; PCP Family Medicine
DX: R55 Syncope and collapse (principal); E11.9 Type 2 diabetes mellitus without complications; E78.5 Hyperlipidemia, unspecified; I10 Essential (primary) hypertension; Z87.891 Personal history of nicotine dependence
CPT/HCPCS: 36415; 70450; 70496; 70498; 80053; 82077; 82803; 82947; 83605; 83880; 84484; 85025; 93005; 93246; 94761; 99284; 99285; Q9967

== ENCOUNTER 2025-01-31 13:46 | Outpatient (CLI) | payer OTHER, SELFPAY | END 2025-01-31 13:47 | disposition home or self-care (01) | LOC: RAD 13:47 | PROVIDERS: PCP Family Medicine; Visit Provider Internal Medicine | DX: R55 Syncope and collapse (principal); I51.7 Cardiomegaly; I47.10 Supraventricular tachycardia, unspecified | CPT/HCPCS: 93306 ==